=== PATIENT | female | born 1960 | race Caucasian/White ===

== ENCOUNTER 2023-03-08 10:13 | Outpatient (RCR) | payer OTHER, SELFPAY | END 2023-03-08 23:59 | disposition home or self-care (01) | LOC: RPT 10:13 | PROVIDERS: ATTENDING PHYSICIAN Orthopaedic Surgery; FAMILY PHYSICIAN Internal Medicine | DX: M54.51 Vertebrogenic low back pain (principal) | CPT/HCPCS: 97110; 97140 ==

== ENCOUNTER → 2023-05-04 10:01 | Outpatient (REF) | payer OTHER, SELFPAY ==
[2023-05-04 12:16] LABS: % Eosinophils 2.5 % (0-6); % Immature Granulocytes 0.2 % (0-0.5); % Lymphocytes 28.9 % (20.5-51.1); % Monocytes 8.3 % (1.7-9.3); % Neutrophils 59.1 % (42.2-75.2); Absolute Basophils 0.1 10^3/uL (0-0.2); Absolute Eosinophils 0.2 10^3/uL (0-0.7); Absolute Lymphocytes 1.8 10^3/uL (1.2-3.4); Absolute Monocytes 0.5 10^3/uL (0.1-0.6); Absolute Neutrophils 3.6 10^3/uL (1.4-6.5); Hematocrit 43.7 % (37.0-47.0); Hemoglobin 14.9 g/dL (12.0-16.0); Mean Corp Hgb Conc. 34.1 g/dL (33.0-37.0); Mean Corpuscular Hgb 32.3 pg (27.0-31.0); Mean Corpuscular Volume 94.6 fL (81.0-99.0); Mean Platelet Volume 9.2 fL (7.4-10.4); Nucleated Red Blood Cells % 0 %; Platelet Count 253 10^3/uL (130-400); Red Blood Cell Count 4.62 10^6/uL (4.20-5.40); Red Cell Dist. Width 12.4 % (11.5-14.5); White Blood Cell Count 6.1 10^3/uL (4.8-10.8)
[2023-05-04 12:42] LABS: ALT (SGPT) 33 U/L (0-35); AST (SGOT) 32 U/L (14-36); Albumin 4.4 g/dl (3.5-5.0); Alkaline Phosphatase 84 U/L (38-126); Blood Urea Nitrogen 19 mg/dl (7-17); Calcium 9.2 mg/dl (8.4-10.2); Carbon Dioxide 31 mmol/L (22-30); Chloride 104 mmol/L (98-107); Glucose 97 mg/dl (70-99); HDL Cholesterol 49 mg/dl; LDL Cholesterol, Calculated 174 mg/dl; Potassium 4.4 mmol/L (3.5-5.1); Sodium 140 mmol/L (135-145); Total Bilirubin 0.9 mg/dl (0.2-1.3); Total Cholesterol 254 mg/dl (50-199); Total Protein 7.6 g/dl (6.3-8.2); Triglyceride 157 mg/dl (10-149); Very Low Density Lipoprotein 31 mg/dl (0-30); eGFR > 60.00
[2023-05-04 13:28] LABS: TSH Reflex To Free T4 1.85 uIU/ml (0.47-4.68)
== END ==
LOC: HWLAB 10:01
PROVIDERS: ATTENDING PHYSICIAN Internal Medicine
DX: Z00.00 Encounter for general adult medical examination without abnormal findings (principal)
CPT/HCPCS: 36415; 80053; 80061; 84443; 85025

== ENCOUNTER → 2023-08-09 07:51 | Outpatient (REF) | payer MEDICARE, SELFPAY ==
[2023-08-09 11:57] LABS: HDL Cholesterol 63 mg/dl; LDL Cholesterol, Calculated 67 mg/dl; Total Cholesterol 156 mg/dl (50-199); Triglyceride 133 mg/dl (10-149); Very Low Density Lipoprotein 26 mg/dl (0-30)
[2023-08-10 15:46] LABS: ALT (SGPT) 37 U/L (0-35); AST (SGOT) 37 U/L (14-36); Albumin 4.2 g/dl (3.5-5.0); Alkaline Phosphatase 95 U/L (38-126); Blood Urea Nitrogen 24 mg/dl (7-17); Carbon Dioxide 27 mmol/L (22-30); Chloride 103 mmol/L (98-107); Glucose 108 mg/dl (70-99); Potassium 4.3 mmol/L (3.5-5.1); Sodium 140 mmol/L (135-145); Total Bilirubin 0.7 mg/dl (0.2-1.3); eGFR > 60.00
== END ==
LOC: HWLAB 07:51
PROVIDERS: ATTENDING PHYSICIAN Internal Medicine
DX: I10 Essential (primary) hypertension (principal)
CPT/HCPCS: 36415; 80053; 80061

== ENCOUNTER → 2023-12-15 08:35 | Outpatient (REF) | payer MEDICARE, SELFPAY ==
[2023-12-15 09:49] LABS: ALT (SGPT) 33 U/L (0-35); AST (SGOT) 36 U/L (14-36); Albumin 4.5 g/dl (3.5-5.0); Alkaline Phosphatase 86 U/L (38-126); Blood Urea Nitrogen 25 mg/dl (7-17); Calcium 9.8 mg/dl (8.4-10.2); Carbon Dioxide 28 mmol/L (22-30); Chloride 102 mmol/L (98-107); Glucose 96 mg/dl (70-99); HDL Cholesterol 63 mg/dl; LDL Cholesterol, Calculated 129 mg/dl; Potassium 4.5 mmol/L (3.5-5.1); Sodium 142 mmol/L (135-145); Total Bilirubin 0.9 mg/dl (0.2-1.3); Total Cholesterol 212 mg/dl (50-199); Total Protein 7.2 g/dl (6.3-8.2); Triglyceride 102 mg/dl (10-149); Very Low Density Lipoprotein 20 mg/dl (0-30); eGFR > 60.00
== END ==
LOC: HWLAB 08:35
PROVIDERS: ATTENDING PHYSICIAN Internal Medicine
DX: I10 Essential (primary) hypertension (principal); E78.00 Pure hypercholesterolemia, unspecified; R73.9 Hyperglycemia, unspecified
CPT/HCPCS: 36415; 80053; 80061

== ENCOUNTER → 2024-01-02 14:08 | Outpatient (REF) | payer MEDICARE, SELFPAY | LOC: HWWDC 14:08 | PROVIDERS: ATTENDING PHYSICIAN Nurse Practitioner Adult Health; FAMILY PHYSICIAN Internal Medicine | DX: Z12.31 Encounter for screening mammogram for malignant neoplasm of breast (principal) | CPT/HCPCS: 77063; 77067 ==

== ENCOUNTER → 2024-01-03 10:10 | Outpatient (REF) | payer MEDICARE, SELFPAY | LOC: HWRAD 10:10 | PROVIDERS: ATTENDING PHYSICIAN Internal Medicine Cardiovascular Disease; FAMILY PHYSICIAN Internal Medicine | DX: E78.00 Pure hypercholesterolemia, unspecified (principal); Z82.49 Family history of ischemic heart disease and other diseases of the circulatory system | CPT/HCPCS: 75571 ==

== ENCOUNTER → 2024-01-18 13:59 | Outpatient (REF) | payer MEDICARE, SELFPAY | LOC: HWRCS 13:59 | PROVIDERS: ATTENDING PHYSICIAN Internal Medicine Cardiovascular Disease; FAMILY PHYSICIAN Internal Medicine | DX: I31.39 Other pericardial effusion (noninflammatory) (principal) | CPT/HCPCS: 93306 ==

== ENCOUNTER → 2024-02-23 06:28 | Day surgery (SDC) | payer MEDICARE, SELFPAY | LOC: GI 06:28 | PROVIDERS: ATTENDING PHYSICIAN Internal Medicine Gastroenterology | DX: D12.2 Benign neoplasm of ascending colon (principal); D12.8 Benign neoplasm of rectum; Z80.0 Family history of malignant neoplasm of digestive organs | CPT/HCPCS: 45385; 88305 ==

== ENCOUNTER → 2024-05-13 08:12 | Outpatient (REF) | payer MEDICARE, SELFPAY ==
[2024-05-13 09:31] LABS: % Basophils 0.9 % (0-2); % Eosinophils 2.1 % (0-6); % Immature Granulocytes 0.2 % (0-0.5); % Lymphocytes 45.5 % (20.5-51.1); % Monocytes 9.4 % (1.7-9.3); % Neutrophils 41.9 % (42.2-75.2); Absolute Eosinophils 0.1 10^3/uL (0-0.7); Absolute Monocytes 0.4 10^3/uL (0.1-0.6); Absolute Neutrophils 1.8 10^3/uL (1.4-6.5); Hematocrit 42.4 % (37.0-47.0); Hemoglobin 14.3 g/dL (12.0-16.0); Mean Corp Hgb Conc. 33.7 g/dL (33.0-37.0); Mean Corpuscular Volume 94.9 fL (81.0-99.0); Mean Platelet Volume 9.3 fL (7.4-10.4); Nucleated Red Blood Cells % 0 %; Platelet Count 209 10^3/uL (130-400); Red Blood Cell Count 4.47 10^6/uL (4.20-5.40); White Blood Cell Count 4.4 10^3/uL (4.8-10.8)
[2024-05-13 10:25] LABS: ALT (SGPT) 37 U/L (0-35); AST (SGOT) 34 U/L (14-36); Albumin 4.6 g/dl (3.5-5.0); Alkaline Phosphatase 81 U/L (38-126); Blood Urea Nitrogen 25 mg/dl (7-17); Calcium 9.6 mg/dl (8.4-10.2); Carbon Dioxide 28 mmol/L (22-30); Chloride 102 mmol/L (98-107); Glucose 98 mg/dl (70-99); HDL Cholesterol 57 mg/dl; LDL Cholesterol, Calculated 131 mg/dl; Potassium 4.7 mmol/L (3.5-5.1); Sodium 139 mmol/L (135-145); Total Cholesterol 216 mg/dl (50-199); Total Protein 7.2 g/dl (6.3-8.2); Triglyceride 141 mg/dl (10-149); Very Low Density Lipoprotein 28 mg/dl (0-30); eGFR > 60.00
[2024-05-13 10:34] LABS: TSH Reflex To Free T4 2.62 uIU/ml (0.47-4.68)
== END ==
LOC: HWLAB 08:12
PROVIDERS: ATTENDING PHYSICIAN Internal Medicine
DX: I10 Essential (primary) hypertension (principal); R73.9 Hyperglycemia, unspecified
CPT/HCPCS: 36415; 80053; 80061; 84443; 85025

== ENCOUNTER → 2024-06-05 14:06 | Outpatient (REF) | payer MEDICARE, SELFPAY | LOC: HWRAD 14:06 | PROVIDERS: ATTENDING PHYSICIAN Internal Medicine; REFERRING PHYSICIAN Nurse Practitioner Adult Health | DX: Z78.0 Asymptomatic menopausal state (principal) | CPT/HCPCS: 77080 ==

== ENCOUNTER → 2025-01-09 13:58 | Outpatient (REF) | payer MEDICARE, SELFPAY | LOC: HWWDC 13:58 | PROVIDERS: ATTENDING PHYSICIAN Nurse Practitioner Adult Health; FAMILY PHYSICIAN Internal Medicine | DX: Z12.31 Encounter for screening mammogram for malignant neoplasm of breast (principal) | CPT/HCPCS: 77063; 77067 ==

== ENCOUNTER 2025-02-03 20:20 | Day surgery (SDC) | payer MEDICARE, SELFPAY ==
[2025-02-03] VITALS (17 sets, daily range): BP systolic 92–173; BP diastolic 36–85; BMI 19.4
[2025-02-03] MEDS: ZOFRAN 4 MG IV (15:00)
[2025-02-03] MEDS: NSS 1000 IV ×3 (15:00→22:02)
[2025-02-03] MEDS: MORPHINE SULFATE 4 MG IV ×2 (15:01→19:24)
[2025-02-03 15:07] LABS: Urine Character Clear (Clear)
[2025-02-03 15:15] LABS: Hematocrit 43.8 % (37.0-47.0); Hemoglobin 14.7 g/dL (12.0-16.0); Mean Corp Hgb Conc. 33.6 g/dL (33.0-37.0); Mean Corpuscular Volume 94.8 fL (81.0-99.0); Nucleated Red Blood Cells % 0 %; Platelet Count 208 10^3/uL (130-400); Red Cell Dist. Width 11.7 % (11.5-14.5)
[2025-02-03 15:27] LABS: ALT (SGPT) 23 U/L (0-35); AST (SGOT) 28 U/L (14-36); Albumin 4.6 g/dl (3.5-5.0); Alkaline Phosphatase 83 U/L (38-126); Blood Urea Nitrogen 18 mg/dl (7-17); Calcium 9.2 mg/dl (8.4-10.2); Carbon Dioxide 31 mmol/L (22-30); Chloride 96 mmol/L (98-107); Glucose 176 mg/dl (70-99); Lipase 85 U/L (23-300); Potassium 4.2 mmol/L (3.5-5.1); Sodium 134 mmol/L (135-145); Total Protein 7.8 g/dl (6.3-8.2); eGFR > 60.00
--- NOTE | 2025-02-03 15:32 | ED.GENMED ---
History of Present Illness
General
Chief Complaint: Back Pain
Source: patient
Exam Limitations: none
Time Seen by Provider: 02/03/25 14:37
Nursing documentation reviewed up to this point in time: agreed with
History of Present Illness
History of Present Illness:
64 yo female w h/o HTN, presents for pain across back just below the bra line that wraps around same level across upper abdomen/lower chest that woke her at 4 a.m. Tried Advil, Gas Ex, Pepto Bismol with no relief. Denies fever/chills, denies
vomiting but feels nauseous. Went to , had bacteria in urine and given rx for Augmentin. Pain was so bad she decided to comer here. Pain now 6/10, constant, 'like a tight band around my back and stomach.'
Past History
Past History
ED Past Medical History: HTN and Psychiatric (Anxiety)
Social History
Tobacco: Non-smoker
Alcohol: None
Drug: None
Review of Systems
Review of Systems
Allergies reviewed?: Yes
All Other Systems: ROS reviewed and negative except as documented in HPI and ROS
Phy Exam
Physical Exam
Physical Exam:
GENERAL: No acute distress. A&Ox3.
CONSTITUTIONAL: Afebrile.
EYES: clear, conjunctivae normal
ENMT: moist mucus membranes, Pharynx nl
RESPIRATORY: Regular respirations, nonlabored, lungs clear.
CARDIOVASCULAR: Regular rate and rhythm, no murmurs, no rubs.
GI: Soft, nontender, normal BS
MUSCULOSKELETAL: Moves with ease. Well perfused.
SKIN: Warm, dry, pink
PSYCH: Anxious mood and affect. Well kept, interactive and appropriate
NEUROLOGIC: Awake, alert and oriented. No focal neurological deficits
Course
Orders/Labs/Results
Orders:
Orders
02/03/25 14:37
US Abdomen Complete/Upper Urgent
Comment:
Reason For Exam: abd and back pain wraps around
02/03/25 14:38
0.9% Sodium Chloride 1000 ml [Nss] 1,000 ml IV BOLUS
Morphine Sulfate 4 mg IV NOW STA
Ondansetron Injectable [Zofran] 4 mg IV NOW STA
02/03/25 14:54
Complete Blood Count/With Diff Urgent
Comprehensive Metabolic Panel Urgent
Lipase Urgent
Urinalysis Reflex To Culture Urgent
Date Specimen was Collected: 02/03/25
Time Specimen was Collected: 14:40
Urine Microscopic Reflex Cult Urgent
Urine Culture Urgent
JUAN LUIS Source: U
Specimen Description:
Date Specimen was Collected: 02/03/25
Time Specimen was Collected: 14:40
02/03/25 17:23
Piperacillin/Tazo 3.375 Gram [Zosyn] 3.375 gram in 50 ml IV NOW
Abnormal Lab Results
02/03/25
14:54
MCH 31.8 H pg
(27.0-31.0)
Absolute Neuts (auto) 7.5 H 10^3/uL
(1.4-6.5)
Absolute Lymphs (auto) 1.0 L 10^3/uL
(1.2-3.4)
Neutrophils % 82.6 H %
(42.2-75.2)
Lymphocytes % 10.7 L %
(20.5-51.1)
Sodium 134 L mmol/L
(135-145)
Chloride 96 L mmol/L
(98-107)
Carbon Dioxide 31 H mmol/L
(22-30)
BUN 18 H mg/dl
(7-17)
Glucose 176 H mg/dl
(70-99)
Ur Occult Blood Reflex 2+ A
(Negative)
Leukocyte Esterase Rfl 1+ A
(Negative)
Urine RBC 3-6 A /HPF
(0-2)
Urine Bacteria (Reflex) Few A
(Negative)
Urine Glucose 2+ A
(Negative)
Urine Albumin (Reflex) 1+ A
(Neg - Trace)
02/03/25 14:54
02/03/25 14:54
Vital Signs
Initial and Last Documented VS:
Initial Vital Signs
Temp Pulse BP Pulse Ox
98.0 F 70 173/85 99
02/03/25 13:42 02/03/25 13:42 02/03/25 13:42 02/03/25 13:42
Last Documented Vital Signs
Temp Pulse BP Pulse Ox
98.0 F 70 154/63 99
02/03/25 13:42 02/03/25 13:42 02/03/25 17:00 02/03/25 17:15
Solution Make Up Operator consulted with Physician
Solution Make Up Operator consulted with physician?: Yes
Name of Physician Consulted: Tonie
MDM/Problems Addressed
Differential Diagnosis Includes:
Gall stones, cholecystitis, choledocholithiasis, pancreatitis
MDM/Problems Addressed:
64 yo female w h/o HTN, presents for pain across back just below the bra line that wraps around same level across upper abdomen/lower chest that woke her at 4 a.m. Tried Advil, Gas Ex, Pepto Bismol with no relief. Denies fever/chills, denies
vomiting but feels nauseous. Went to , had bacteria in urine and given rx for Augmentin. Pain was so bad she decided to comer here. Pain now 6/10, constant, 'like a tight band around my back and stomach.'
CBC unremarkable
CMP with no clinically significant abnormality
urinalysis:
4:50 p.m.
In to re evaluate pt: feeling much better after IVFs and pain medication, pain is gone
US report reviewed: IMPRESSION:
Cholelithiasis. Gallbladder wall appears thickened and not mentioned above, has some increased color flow. In the correct clinical setting, these findings are suggestive of cholecystitis. Negative sonographic Fitzgerald's sign.
Intrahepatic bile duct dilation. Common bile duct is dilated measuring up to 9.7 mm. No sonographic evidence for bile duct calculus.
Simple cyst arising in the upper pole the right kidney.
Consulted Surgery Dr. Lee and Michell notified of admission. Requests admit to their service and Zosyn
Pt and updated.
Dr. Schilling notified of admission.
*Pulse Oximetry
SaO2: 98
Oxygen Mode of Delivery: Room air
Patient hypoxic: no
*Critical Care Note
Total Time (30-74mins, 75-104mins- exclusive of procedures): Not Applicable
ED Attending Note
-
Portions of this chart may have been created with voice recognition software.� Occasional wrong word or��sound alike� substitutions may have occurred due to the inherent limitations of voice recognition software.
Discharge Plan
Departure
Patient Disposition: Admit
Date of Disposition: 02/03/25
Time of Disposition: 17:23
Admit to: Med/Surg
Presentation/result/management discussed w/ accepting /: Michell
Condition: Good
Discharge Problem:
Acute cholecystitis
Prescriptions:
No Action
hydrochlorothiazide 12.5 MG tablet
12.5 mg PO DAILY Qty: 14 0RF
Referrals:
Pamela Espinoza MD [Family Provider, Internal Medicine]
Interventions
Interventions:
*Risk Screen - Suicide Last Done: 02/03/25 13:46
*General Assessment Last Done: 02/03/25 15:07
*Neglect/Abuse Screening Last Done: 02/03/25 13:46
*ED- Fall Risk Assessment Last Done: 02/03/25 15:07
*ED COVID-19 Vaccine History Last Done: 02/03/25 15:07
*ED Influenza Vaccine History Last Done: 02/03/25 15:07
ED-Musculoskeletal Assessment Last Done: 02/03/25 15:07
Discharge Date and Time
Print Language: [place]
[2025-02-03] MEDS: ZOSYN 50 IV ×2 (17:34→22:48)
--- NOTE | 2025-02-03 18:57 | ED.GENMED ---
History of Present Illness
General
Chief Complaint: Back Pain
Time Seen by Provider: 02/03/25 14:37
Past History
Past History
ED Past Medical History: HTN and Psychiatric (Anxiety)
Social History
Tobacco: Non-smoker
Alcohol: None
Drug: None
Course
Orders/Labs/Results
Orders:
Orders
02/03/25 14:37
US Abdomen Complete/Upper Urgent
Comment:
Reason For Exam: abd and back pain wraps around
02/03/25 14:38
0.9% Sodium Chloride 1000 ml [Nss] 1,000 ml IV BOLUS
Morphine Sulfate 4 mg IV NOW STA
Ondansetron Injectable [Zofran] 4 mg IV NOW STA
02/03/25 14:54
Complete Blood Count/With Diff Urgent
Comprehensive Metabolic Panel Urgent
Lipase Urgent
Urinalysis Reflex To Culture Urgent
Date Specimen was Collected: 02/03/25
Time Specimen was Collected: 14:40
Urine Microscopic Reflex Cult Urgent
Urine Culture Urgent
JUAN LUIS Source: U
Specimen Description:
Date Specimen was Collected: 02/03/25
Time Specimen was Collected: 14:40
02/03/25 17:23
Piperacillin/Tazo 3.375 Gram [Zosyn] 3.375 gram in 50 ml IV NOW
02/03/25 18:57
Morphine Sulfate 4 mg IV NOW STA
NSS 1000mL Bolus WIDE OPEN 0.9% Sodium Chloride 1000 ml [Nss] 1,000 ml IV BOLUS
Abnormal Lab Results
02/03/25
14:54
MCH 31.8 H pg
(27.0-31.0)
Absolute Neuts (auto) 7.5 H 10^3/uL
(1.4-6.5)
Absolute Lymphs (auto) 1.0 L 10^3/uL
(1.2-3.4)
Neutrophils % 82.6 H %
(42.2-75.2)
Lymphocytes % 10.7 L %
(20.5-51.1)
Sodium 134 L mmol/L
(135-145)
Chloride 96 L mmol/L
(98-107)
Carbon Dioxide 31 H mmol/L
(22-30)
BUN 18 H mg/dl
(7-17)
Glucose 176 H mg/dl
(70-99)
Ur Occult Blood Reflex 2+ A
(Negative)
Leukocyte Esterase Rfl 1+ A
(Negative)
Urine RBC 3-6 A /HPF
(0-2)
Urine Bacteria (Reflex) Few A
(Negative)
Urine Glucose 2+ A
(Negative)
Urine Albumin (Reflex) 1+ A
(Neg - Trace)
02/03/25 14:54
02/03/25 14:54
Vital Signs
Initial and Last Documented VS:
Initial Vital Signs
Temp Pulse BP Pulse Ox
98.0 F 70 173/85 99
02/03/25 13:42 02/03/25 13:42 02/03/25 13:42 02/03/25 13:42
Last Documented Vital Signs
Temp Pulse BP Pulse Ox
98.0 F 70 154/63 99
02/03/25 13:42 02/03/25 13:42 02/03/25 17:00 02/03/25 17:15
*Pulse Oximetry
SaO2: 99
Oxygen Mode of Delivery: Room air
ED Attending Note
ED Attending Note
Patient seen and examined by attending physician: Yes
I performed the substantive portion of visit, reviewed & personally made and approve the management plan that is documented in note by myself or ALEXSANDRA.: Yes
ED Attending Note:
Seen with nurse practitioner examined independently 63-year-old female epigastric right upper quadrant right back pain fairly severe earlier today labs noted, ultrasound noted looks like biliary colic
-
Portions of this chart may have been created with voice recognition software.� Occasional wrong word or��sound alike� substitutions may have occurred due to the inherent limitations of voice recognition software.
Discharge Plan
Departure
Patient Disposition: Admit
Date of Disposition: 02/03/25
Time of Disposition: 17:23
Admit to: Med/Surg
Presentation/result/management discussed w/ accepting MD/DO: Michell
Condition: Good
Discharge Problem:
Acute cholecystitis
Prescriptions:
No Action
simethicone [Gas-X] 80 mg Tablet,Chewable
80 mg PO DAILYPRN PRN (Reason: gas pains)
nebivolol 2.5 mg Tablet
2.5 mg PO HS
Xiidra 5 % Dropperette
1 drp BOTH EYES BID
Theragen Tablet
1 tab PO DAILY
zinc sulfate 50 mg zinc (220 mg) Tablet
50 mg PO QPM
calcium carbonate [Calcium 500] 500 mg calcium (1,250 mg) Tablet
500 mg PO DAILY
bismuth subsalicylate [Pepto-Bismol] 262 mg/15 mL Suspension
262 mg PO DAILYPRN PRN (Reason: gerd)
ibuprofen [Advil] 200 mg Tablet
400 mg PO DAILYPRN PRN (Reason: mild pain)
cholecalciferol (vitamin D3) [Vitamin D3] 25 mcg (1,000 unit) Tablet
25 mcg PO DAILY
magnesium oxide 200 mg magnesium Tablet
200 mg PO QPM
Referrals:
Pamela Espinoza MD [Family Provider, Internal Medicine]
Interventions
Interventions:
*Risk Screen - Suicide Last Done: 02/03/25 13:46
*General Assessment Last Done: 02/03/25 15:07
*Neglect/Abuse Screening Last Done: 02/03/25 13:46
*ED- Fall Risk Assessment Last Done: 02/03/25 15:07
*ED COVID-19 Vaccine History Last Done: 02/03/25 15:07
*ED Influenza Vaccine History Last Done: 02/03/25 15:07
ED-Musculoskeletal Assessment Last Done: 02/03/25 15:07
Discharge Date and Time
Print Language: TAJIK
--- NOTE | 2025-02-03 19:58 | HPS.HSE ---
Family Physician
-
Family Physician: Pamela Espinoza
Chief Complaint
-
Back Pain
History of Present Illness
a 64 years old female with PMH of hypertension, GERD present to ER with central back pain below the bra line started around 4am, 8-9/10 of pain scale. Patient took Gas Ex, Pepto Bismol and Advil with no relief. Around 8am pain extended to b/l lower
chest and epigastric area. Symptoms associated with nausea. Denies vomiting, diarrhea, constipation, sob, chills, fever or any other symptoms. Patient currently is following a healthy diet and lost around 10 lbs with the healthy food. No pain during
the exam as the patient just received a dose of morphine before assessment time.
Medical History
Past Medical History
Past Medical History: Reports GERD and HTN
Past Surgical History: Reports Appendectomy (at age of 64 years old) and Other (Laparotomy at age 30 yrs old and fibroid tumor removed. Facelift )
Social History
Tobacco: Non-smoker
Alcohol: Occasional
Drug: None
Personal:
Living: With Family
Employment: Employed
Family History
Family History: Other (grandmother with cholecystitis )
Allergies / Home Medications
Allergies reflects when Allergies were last updated in [facility] ([facility]
Home Medications with original date entered in [facility] ([facility])
Allergy/Medication List:
Patient Allergies
Allergy/AdvReac Type Severity Reaction Status Date / Time
No Known Allergies Allergy Unverified 03/20/18 16:31
Home Medications Table - record
�Medication �Instructions �Recorded �Confirmed
bismuth subsalicylate 262 mg/15 mL 262 mg PO DAILYPRN PRN gerd 02/03/25 02/03/25
oral suspension (Pepto-Bismol)
calcium carbonate 500 mg PO DAILY Supplement 02/03/25 02/03/25
cholecalciferol (vitamin D3) 25 25 mcg PO DAILY Supplement 02/03/25 02/03/25
mcg (1,000 unit) tablet (Vitamin
D3)
ibuprofen 200 mg tablet (Advil) 400 mg PO DAILYPRN PRN mild pain 02/03/25 02/03/25
lifitegrast 5 % eye drops in a 1 drp BOTH EYES BID Eye Condition 02/03/25 02/03/25
dropperette (Xiidra)
magnesium oxide 200 mg PO QPM Supplement 02/03/25 02/03/25
nebivolol 2.5 mg tablet 2.5 mg PO HS Heart 02/03/25 02/03/25
Disease/Condition
simethicone 80 mg chewable tablet 80 mg PO DAILYPRN PRN gas pains 02/03/25 02/03/25
therapeutic multivitamin 1 tab PO DAILY Supplement 02/03/25 02/03/25
zinc sulfate 50 mg zinc (220 mg) 50 mg PO QPM Supplement 02/03/25 02/03/25
tablet
Review of Systems
-
History Source: Patient
A 12 point ROS was completed and negative except as noted: Yes
Constitutional: Reports No Symptoms
EENT: Reports No Symptoms
Respiratory: Reports No Symptoms
Cardiac: Reports No Symptoms
Abdomen/GI: Reports Abdominal Pain and Nausea
: Reports No Symptoms
Physical Exam
Vital Signs
Vital Signs
Temp Pulse BP Pulse Ox
98.0 F 70 154/63 99
02/03/25 13:42 02/03/25 13:42 02/03/25 17:00 02/03/25 18:58
Physical Exam
General: No Apparent Distress
Respiratory: Clear
Cardiac: Regular Rhythm
GI: Soft, Non Tender, Non Distended and Normal Bowel Sounds
Musculoskeletal: No Edema
Neuro: Awake and AO x 3
Laboratory Results
-
02/03/25 14:54
02/03/25 14:54
Laboratory Results
Total Bilirubin 0.6 mg/dl (0.2-1.3) 02/03/25 14:54
AST 28 U/L (14-36) 02/03/25 14:54
ALT 23 U/L (0-35) 02/03/25 14:54
Alkaline Phosphatase 83 U/L (38-126) 02/03/25 14:54
Lipase 85 U/L (23-300) 02/03/25 14:54
Impression/Plan
-
Abdominal U/S shows
Cholelithiasis. Gallbladder wall appears thickened and not mentioned above, has some increased color flow. In the correct clinical setting, these findings are suggestive of cholecystitis. Negative sonographic Fitzgerald's sign.
Intrahepatic bile duct dilation. Common bile duct is dilated measuring up to 9.7 mm. No sonographic evidence for bile duct calculus.
Simple cyst arising in the upper pole the right kidney.
IMPRESSION:
Acute cholecystitis
PLAN:
Admit/ observation / med-surg / Dr. Galarza/ surgical services.
NPO
IVF
Abx Zosyn
antiemetics as needed.
analgesics as needed.
Hypertension
Currently on Nebivolol
DVT prophylaxis: Lovenox
Code status: Full code
[2025-02-04] VITALS (8 sets, daily range): BP systolic 102–129; BP diastolic 41–66
[2025-02-04] MEDS: MELATONIN 5 MG PO (01:24)
--- NOTE | 2025-02-04 04:55 | PTCARENOTE ---
Patient received from ED via stretcher. Patient able to ambulate independently to bed. Patient denies any pain or discomfort. Patient able to tolerate small sips of clear liquids. Reviewed POC with patient and spouse. Call tobias with in reach. Will
monitor.
[2025-02-04] MEDS: ZOSYN 50 IV ×4 (05:16→23:46)
[2025-02-04 05:42] LABS: Hematocrit 38.3 % (37.0-47.0); Hemoglobin 12.5 g/dL (12.0-16.0); Mean Corp Hgb Conc. 32.6 g/dL (33.0-37.0); Mean Corpuscular Volume 97.0 fL (81.0-99.0); Platelet Count 156 10^3/uL (130-400); Red Cell Dist. Width 11.9 % (11.5-14.5)
[2025-02-04 05:59] LABS: Blood Urea Nitrogen 12 mg/dl (7-17); Calcium 8.4 mg/dl (8.4-10.2); Carbon Dioxide 31 mmol/L (22-30); Chloride 106 mmol/L (98-107); Estimated Creatinine Clearance 48 ml/min; Glucose 107 mg/dl (70-99); Potassium 4.2 mmol/L (3.5-5.1); Sodium 138 mmol/L (135-145); eGFR > 60.00
[2025-02-04] MEDS: MORPHINE SULFATE 2 MG IV (08:06)
[2025-02-04] MEDS: TYLENOL 650 MG PO (08:17)
--- NOTE | 2025-02-04 08:40 | CON.GS ---
Medical History
-
Chief Complaint: Abdominal pain
History of Present Illness:
Patient is a 64 yo F with a PMH of GERD, HTN, s/p appendectomy, and s/p laparoscopic removal of a fibroid. Ms. Hartley presents with 24 hours of upper abdominal pain. She states that her symptoms began acutely yesterday morning. Due to the
persistence and severity of her symptoms she presented to the ER. Pain radiates to her central upper back as well as around her entire abdomen. She has had prior attacks over the years and more frequently on a weekly basis over the past few
months. No nausea or vomiting. No fevers or chills. She denies any jaundice, pale stools, or tea colored urine. Family history notable for a grandmother postcholecystectomy
Past Medical History
Past Medical History: GERD and HTN
Past Surgical History: Appendectomy and Gynecological (Laparoscopic removal of a fibroid)
Social History
Tobacco: Non-Smoker
Alcohol: Occasional
Drug: None
Personal:
Living: With Family
Family History
Family History: Other (Grandmother post-cholecystectomy)
Allergies / Home Medications
Allergy/AdvReac Type Severity Reaction Status Date / Time
No Known Allergies Allergy Unverified 03/20/18 16:31
�Medication �Instructions �Recorded �Confirmed �Type
bismuth subsalicylate 262 mg/15 mL 262 mg PO DAILYPRN PRN gerd 02/03/25 02/03/25 History
oral suspension (Pepto-Bismol)
calcium carbonate 500 mg PO DAILY Supplement 02/03/25 02/03/25 History
cholecalciferol (vitamin D3) 25 25 mcg PO DAILY Supplement 02/03/25 02/03/25 History
mcg (1,000 unit) tablet (Vitamin
D3)
ibuprofen 200 mg tablet (Advil) 400 mg PO DAILYPRN PRN mild pain 02/03/25 02/03/25 History
lifitegrast 5 % eye drops in a 1 drp BOTH EYES BID Eye Condition 02/03/25 02/03/25 History
dropperette (Xiidra)
magnesium oxide 200 mg PO QPM Supplement 02/03/25 02/03/25 History
nebivolol 2.5 mg tablet 2.5 mg PO HS Heart 02/03/25 02/03/25 History
Disease/Condition
simethicone 80 mg chewable tablet 80 mg PO DAILYPRN PRN gas pains 02/03/25 02/03/25 History
therapeutic multivitamin 1 tab PO DAILY Supplement 02/03/25 02/03/25 History
zinc sulfate 50 mg zinc (220 mg) 50 mg PO QPM Supplement 02/03/25 02/03/25 History
tablet
Review of Systems
-
A 10 point review of systems was completed, and was negative except as per HPI.
Physical Exam
Vital Signs
Temp Pulse Resp BP Pulse Ox
100.6 F H 64 16 105/45 98
02/04/25 07:37 02/04/25 07:37 02/04/25 07:37 02/04/25 07:37 02/04/25 07:37
02/03/25 02/04/25 02/05/25
06:59 06:59 06:59
Actual Weight 49.668 kg
Body Mass Index (BMI) 19.4
Lab Results
02/04/25 05:07
02/04/25 05:07
WBC 6.1 10^3/uL (4.8-10.8) 02/04/25 05:07
Hgb 12.5 g/dL (12.0-16.0) 02/04/25 05:07
Hct 38.3 % (37.0-47.0) 02/04/25 05:07
Plt Count 156 10^3/uL (130-400) D 02/04/25 05:07
Abs Immat Gran (auto) 0.0 10^3/uL (0-0.05) 02/03/25 14:54
Neutrophils % 82.6 % (42.2-75.2) H 02/03/25 14:54
Physical Exam
General: Well Developed, Well Nourished and No Apparent Distress
HEENT: Normocephalic and Anicteric
Respiratory: Non Labored Respirations
Cardiac: Regular Rhythm
GI: Soft, Non Distended, Tender (Epigastrium/RUQ, positive Fitzgerald sign), Incisions (Well-healed) and Obese (Nonperitoneal (no rebound or guarding))
Musculoskeletal: No Edema
Skin: Warm and Dry
Neuro: Nonfocal/Grossly Intact
Data Reviewed
-
Ultrasound: Image Personally Visualized and interpreted and Report Reviewed by me
Labs: Labs Reviewed by me
Assessment / Plan
-
Patient is a 64 yo F p/w acute on chronic cholecystitis
The natural history and pathophysiology of biliary and stone disease was discussed. Anatomy was reviewed. Workup thus far including labs and ultrasound were reviewed. Options for management were reviewed. Given her persistent pain and frequency
of attacks recommend cholecystectomy.
Plan for a laparoscopic cholecystectomy with intraoperative cholangiogram. The procedure itself, as well as the risks, benefits, and alternatives was discussed. Specifically, we discussed the risks of bleeding, infection, injury to surrounding
structures (bowel, bile ducts), CBD injury, need for open procedure. Typical postprocedural recovery was discussed. Specifically, we discussed activity restrictions and the 10 to 20% risks of fluctuations in GI function. All questions answered.
Consent signed.
-- Laparoscopic cholecystectomy with IOC
-- NPO, IVF
-- Antibiotics: Zosyn
-- Pain control: Tylenol and IV Morphine
--- NOTE | 2025-02-04 08:48 | W.SUR.PREOP ---
Pre-Operative Surgical Note
-
I have examined this patient prior to the performance of the scheduled procedure.
The patient's condition is unchanged from the time of the current History and
Physical and the patient is able to undergo the scheduled procedure.
[2025-02-04] MEDS: NSS 1000 IV (09:35)
[2025-02-04] MEDS: DILAUDID 0.5 MG IV ×2 (10:31→13:32)
[2025-02-04 11:04] LABS: ALT (SGPT) 34 U/L (0-35); AST (SGOT) 32 U/L (14-36); Albumin 3.3 g/dl (3.5-5.0); Alkaline Phosphatase 70 U/L (38-126); Total Protein 5.8 g/dl (6.3-8.2)
[2025-02-04] MEDS: ZOFRAN 4 MG IV (13:31)
--- NOTE | 2025-02-04 16:37 | W.IMMPOSTOP ---
Surgical Immed Post Op Note
-
Primary Surgeon: Michell
Assisting Surgeon: None
Pre-op Diagnosis: Acute on chronic cholecystitis
Post-op Diagnosis: Acute on chronic cholecystitis
Procedure Performed: Laparoscopic cholecystectomy with IOC
Anesthesia Type: General
Specimen / Cultures:
1. Gallbladder
Estimated Blood Loss: 3 cc
Complications: None
Operative Findings:
1. Distended, significant chronic wall thickening, hydropic bile, large stones
2. Critical view
3. IOC negative
4. Duct and artery taken with clips
--- NOTE | 2025-02-04 16:53 | CM ---
CM unable to complete IA; pt off the floor for cholecystectomy.
CM to f/u in AM.
[2025-02-04] MEDS: LOVENOX 30 MG SC (18:16)
--- NOTE | 2025-02-05 03:02 | DOWNTIME ---
There was a [employer] Client Manager Of Change Downtime on 02/05/2025 from 0100 to 02/05/2025 at 0255. Downtime documentation of patient's care, including medication administrations, has been reconciled in the electronic record per guidelines. Refer to the
patient's paper chart under the miscellaneous tab to see printed paper medication records and downtime forms.
[2025-02-05] MEDS: NSS 1000 IV (04:00)
[2025-02-05] MEDS: TORADOL 10 MG IV ×2 (04:00→10:03)
[2025-02-05 05:41] LABS: Hematocrit 34.2 % (37.0-47.0); Hemoglobin 11.6 g/dL (12.0-16.0); Mean Corp Hgb Conc. 33.9 g/dL (33.0-37.0); Mean Corpuscular Volume 93.4 fL (81.0-99.0); Platelet Count 156 10^3/uL (130-400); Red Cell Dist. Width 11.7 % (11.5-14.5)
[2025-02-05] MEDS: ZOSYN 50 IV (05:45)
[2025-02-05 06:06] LABS: ALT (SGPT) 57 U/L (0-35); AST (SGOT) 59 U/L (14-36); Albumin 3.2 g/dl (3.5-5.0); Alkaline Phosphatase 62 U/L (38-126); Blood Urea Nitrogen 12 mg/dl (7-17); Calcium 8.2 mg/dl (8.4-10.2); Carbon Dioxide 30 mmol/L (22-30); Chloride 105 mmol/L (98-107); Estimated Creatinine Clearance 48 ml/min; Glucose 114 mg/dl (70-99); Potassium 4.3 mmol/L (3.5-5.1); Sodium 139 mmol/L (135-145); Total Protein 5.8 g/dl (6.3-8.2); eGFR > 60.00
[2025-02-05 08:13] VITALS: BP 125/52
--- NOTE | 2025-02-05 09:15 | W.PN.GS2 ---
Today's Communication / Plan
-
-- DC today
Assessment / Plan
-
Patient is a 64 yo M /w acute on chronic cholecystitis
POD#1 s/p laparoscopic cholecystectomy with IOC
AVSS
Labs notable for normal WBC, stable Hb, normal lytes and renal function, normal bili, mild transaminitis (expected, mechanical liver manipulation operatively)
Recovering well, no post-op concerns.
-- Regular diet
-- Pain control: Tylenol, Toradol, Oxycodone
-- HLIV
-- Abx: None further needed
-- Home meds
-- DVT: Lovenox
-- DC today
Subjective Data
-
Date of Service: February 05, 2025
No complaints. Pain well controlled. No nausea or vomiting. No fevers.
Objective Data
-
Intake and Output
02/04/25 02/05/25 02/06/25
06:59 06:59 06:59
Intake Total 920 / 920
Balance 920 / 920
Intake:
Oral fluids 720 / 720
IV fluids (Total) 200 / 200
Normosal 200 / 200
Other:
Number of approximated MODERATE 1 2
amounts of urine
Vital Signs
Temp Pulse Resp BP Pulse Ox
97.7 F 59 16 125/52 98
02/05/25 08:13 02/05/25 08:13 02/05/25 08:13 02/05/25 08:13 02/05/25 08:13
Lab Results
02/05/25 05:06
02/05/25 05:06
Calcium 8.2 mg/dl (8.4-10.2) L 02/05/25 05:06
Total Bilirubin 0.7 mg/dl (0.2-1.3) 02/05/25 05:06
Direct Bilirubin Cancelled 02/04/25 08:08
AST 59 U/L (14-36) H 02/05/25 05:06
ALT 57 U/L (0-35) H 02/05/25 05:06
Alkaline Phosphatase 62 U/L (38-126) 02/05/25 05:06
Total Protein 5.8 g/dl (6.3-8.2) L 02/05/25 05:06
Albumin 3.2 g/dl (3.5-5.0) L 02/05/25 05:06
Physical Exam
-
Gen: NAD
Abd: soft, mild tenderness at incisions. ND, non-peritoneal, incisions c/d/i - no erythema, ecchymosis or drainage
Patient has a waters catheter: No
Patient has a central line: No
--- NOTE | 2025-02-05 09:35 | CM ---
CM met with Jody and her at bedside this AM. Rivera notice given, signed copy placed in the patient's chart.
Pt is (I) amb and adls at baseline; s/p cholecystectomy and ambulatory in her room.
Pt's will provide transport home today. No needs identified.
Plan: Discharge to home today via car
--- NOTE | 2025-02-08 07:05 | ED.GENMED ---
History of Present Illness
General
Chief Complaint: Back Pain
Time Seen by Provider: 02/03/25 14:37
Past History
Past History
ED Past Medical History: HTN and Psychiatric (Anxiety)
Social History
Tobacco: Non-smoker
Alcohol: None
Drug: None
Course
Orders/Labs/Results
Orders:
Orders
02/03/25 14:37
US Abdomen Complete/Upper Urgent
Comment:
Reason For Exam: abd and back pain wraps around
02/03/25 14:38
0.9% Sodium Chloride 1000 ml [Nss] 1,000 ml IV BOLUS
Morphine Sulfate 4 mg IV NOW STA
Ondansetron Injectable [Zofran] 4 mg IV NOW STA
02/03/25 14:54
Complete Blood Count/With Diff Urgent
Comprehensive Metabolic Panel Urgent
Lipase Urgent
Urinalysis Reflex To Culture Urgent
Date Specimen was Collected: 02/03/25
Time Specimen was Collected: 14:40
Urine Microscopic Reflex Cult Urgent
Urine Culture Urgent
JUAN LUIS Source: U
Specimen Description:
Date Specimen was Collected: 02/03/25
Time Specimen was Collected: 14:40
02/03/25 17:23
Piperacillin/Tazo 3.375 Gram [Zosyn] 3.375 gram in 50 ml IV NOW
02/03/25 18:57
0.9% Sodium Chloride 1000 ml [Nss] 1,000 ml IV BOLUS
Morphine Sulfate 4 mg IV NOW STA
02/03/25 19:59
Admit/Transfer Patient As Directed
Co-Sign Provider:
Level of Care: Observation services
Assign to:: Medical/Surgical
Physician / Group: Dr. Cavazos /surgical
Diagnosis: Acute cholecystitis
PRN Pain Medication Management As Directed
May give lesser potent ordered pain med per pt: Yes
preference::
Protocol:: Medication orders for pain may be administered in a
manner that supports deferring to patient preference
when the pt is:
- Requesting an ordered lesser potent pain medication.
Least to most potent pain medications are defined
as: acetaminophen < NSAID < tramadol < opioids
(morphine, oxycodone, hydromorphone).
- Requesting a lesser dose of the same medication IF
ORDERED.
- Requesting a less intrusive route of administration
if both routes are prescribed by the provider (PO <
IV).
02/03/25 20:00
Code Status As Directed
Resuscitation Status: Full Code
02/03/25 21:04
0.9% Sodium Chloride 1000 ml [Nss] 1,000 ml IV 80 mls/hr
Acetaminophen [Tylenol] 650 mg PO Q4HPRN PRN
Bisacodyl [Dulcolax] 10 mg RECTAL [id number] PRN
Docusate W/Senna [Senokot-S] 1 tablet PO BIDPRN PRN
Morphine Sulfate 2 mg IV Q4HPRN PRN
Polyethylene Glycol Powder [Miralax] 17 grams PO DAILYPRN PRN
02/03/25 21:04
Activity As Directed
Activity Level: Out of Bed-Early Mobility
Pneumatic Compression Sleeves As Directed
Type: Knee high
Vital Signs As Directed
Frequency: Per unit guidelines
DX Deep Vein Thrombosis Video Routine
02/03/25 21:29
Ondansetron Injectable [Zofran] 4 mg IV Q6HPRN PRN
02/03/25 22:00
Flush (0.9% Sodium Chloride) [Flush (Nss)] See Dose Instructions IV PER PROTOCOL
02/04/25 00:00
Piperacillin/Tazo 3.375 Gram [Zosyn] 3.375 gram in 50 ml IV Q6H
02/04/25 01:18
Melatonin 5 mg PO NOW STA
02/04/25 05:07
Basic Metabolic Panel IN AM
Complete Blood Count/No Diff IN AM
Bflmh-Ontu-Ckqetxd Routine
02/04/25 Breakfast
NPO
Allow oral meds: Yes
Allow clear liquids: No
02/04/25 10:24
HYDROmorphone [Dilaudid] 0.5 mg IV Q3HPRN PRN
02/04/25 14:33
Fentanyl Citrate/Pf [Sublimaze] 100 mcg .ROUTE .STK-MED ONE
02/04/25 14:39
Bupivacaine 0.25%Pf/Epinephrin [Sensorcaine-Epi 0.25%-0.0005] 30 ml .ROUTE .STK-MED ONE
Iohexol [Omnipaque] 50 ml .ROUTE .STK-MED ONE
02/04/25 Dinner
Low Fat
At Your Request: Full Participation
Does patient need a safe tray?: No
02/04/25 15:06
Lidocaine HCl/Pf [Xylocaine-Mpf 1% Vial] 50 mg .ROUTE .STK-MED ONE
Phenylephrine HCl/0.9% NaCl [John-Synephrine] 1,000 mcg .ROUTE .STK-MED ONE
Propofol [Diprivan] 20 ml .ROUTE .STK-MED
Rocuronium Zarephath [Rocuronium] 100 mg .ROUTE .STK-MED ONE
02/04/25 15:15
Dexamethasone Sod Phosphate [Decadron] 20 mg .ROUTE .STK-MED ONE
HYDROmorphone [Dilaudid] 1 mg .ROUTE .STK-MED ONE
Metoclopramide [Reglan] 10 mg .ROUTE .STK-MED ONE
Ondansetron Injectable [Zofran] 4 mg .ROUTE .STK-MED ONE
02/04/25 15:21
Sugammadex Sodium [Bridion] 200 mg .ROUTE .STK-MED ONE
02/04/25 15:28
OR Pathology Routine
Pre-Operative Diagnosis: ACUTE CHOLECYSTITIS
Operative Procedure: LAPAROSCOPIC CHOLECYSTECTOMY, CHOLANGIOGRAM
Surgeon: NICOLÁS CAVAZOS
Circulating Nurse: BOWEN QUINTANILLA
Specimen Type: GALLBLADDER
02/04/25 15:40
RF Fluoroscopy, C-arm Routine
Reason For Exam: GALLSTONES
RF Operative Cholangiogram Routine
Reason For Exam: GALLSTONES
02/04/25 15:51
ePHEDrine SULFATE [Emerphed] 50 mg .ROUTE .STK-MED ONE
02/04/25 16:13
Ketorolac [Toradol] 30 mg .ROUTE .STK-MED ONE
02/04/25 16:41
Admit Patient As Directed
Co-Sign Provider:
Level of Care: Post Proc/Surg Recovery
Assign to:: Medical/Surgical
Physician / Group: Michell / MARTIN
Diagnosis: Cholecystitis
Reason for Overnight Stay: Standard of Care
Ketorolac [Toradol] 10 mg IV Q6HPRN PRN
Oxycodone [Roxicodone] 5 mg PO Q4HPRN PRN
Activity As Directed
Activity Level: Ambulate
Intake/ Output As Directed
Frequency: Per unit guidelines
PRN Pain Medication Management As Directed
May give lesser potent ordered pain med per pt: Yes
preference::
Protocol:: Medication orders for pain may be administered in a
manner that supports deferring to patient preference
when the pt is:
- Requesting an ordered lesser potent pain medication.
Least to most potent pain medications are defined
as: acetaminophen < NSAID < tramadol < opioids
(morphine, oxycodone, hydromorphone).
- Requesting a lesser dose of the same medication IF
ORDERED.
- Requesting a less intrusive route of administration
if both routes are prescribed by the provider (PO <
IV).
02/04/25 16:42
O2 Therapy [RESP] Routine
Titrate/Wean O2 to maintain O2 sat greater than (%): 90
Rx Incentive Spirometry [RESP] Routine
Frequency: q1h while awake
# of times per hour: 10
02/04/25 18:00
Enoxaparin Sodium [Lovenox] 30 mg SC QPM
02/05/25 05:06
Complete Blood Count/No Diff IN AM
Comprehensive Metabolic Panel IN AM
02/05/25 09:15
Discharge Patient As Directed
Is patient a candidate for the pneumococcal vaccine?: No
Year the MOST RECENT Conjugate Pneumococcal vaccine received: unknown
Is patient a candidate for the influenza vaccine?: No
Month/Year vaccine administered for 1304-6963 flu season: 6682-2264 Season/Unsure
Do you have a designated caregiver: Yes-same as spokesperson
Abnormal Lab Results
02/03/25 02/04/25 02/05/25
14:54 05:07 05:06
RBC 3.95 L 10^6/uL 3.66 L 10^6/uL
(4.20-5.40) (4.20-5.40)
Hgb 11.6 L g/dL
(12.0-16.0)
Hct 34.2 L %
(37.0-47.0)
MCH 31.8 H pg 31.6 H pg 31.7 H pg
(27.0-31.0) (27.0-31.0) (27.0-31.0)
MCHC 32.6 L g/dL
(33.0-37.0)
Absolute Neuts (auto) 7.5 H 10^3/uL
(1.4-6.5)
Absolute Lymphs (auto) 1.0 L 10^3/uL
(1.2-3.4)
Neutrophils % 82.6 H %
(42.2-75.2)
Lymphocytes % 10.7 L %
(20.5-51.1)
Sodium 134 L mmol/L
(135-145)
Chloride 96 L mmol/L
(98-107)
Carbon Dioxide 31 H mmol/L 31 H mmol/L
(22-30) (22-30)
BUN 18 H mg/dl
(7-17)
Glucose 176 H mg/dl 107 H mg/dl 114 H mg/dl
(70-99) (70-99) (70-99)
Calcium 8.2 L mg/dl
(8.4-10.2)
AST 59 H U/L
(14-36)
ALT 57 H U/L
(0-35)
Total Protein 5.8 L D g/dl 5.8 L g/dl
(6.3-8.2) (6.3-8.2)
Albumin 3.3 L g/dl 3.2 L g/dl
(3.5-5.0) (3.5-5.0)
Ur Occult Blood Reflex 2+ A
(Negative)
Leukocyte Esterase Rfl 1+ A
(Negative)
Urine RBC 3-6 A /HPF
(0-2)
Urine Bacteria (Reflex) Few A
(Negative)
Urine Glucose 2+ A
(Negative)
Urine Albumin (Reflex) 1+ A
(Neg - Trace)
02/05/25 05:06
02/05/25 05:06
Vital Signs
Initial and Last Documented VS:
Initial Vital Signs
Temp Pulse BP Pulse Ox
98.0 F 70 173/85 99
02/03/25 13:42 02/03/25 13:42 02/03/25 13:42 02/03/25 13:42
Last Documented Vital Signs
Temp Pulse Resp BP Pulse Ox
97.7 F 59 16 125/52 98
02/05/25 08:13 02/05/25 08:13 02/05/25 08:13 02/05/25 08:13 02/05/25 08:13
*Pulse Oximetry
SaO2: 98
Nasal Cannula flow liters per minute: 2
Oxygen Mode of Delivery: Room air
ED Attending Note
-
Portions of this chart may have been created with voice recognition software.� Occasional wrong word or��sound alike� substitutions may have occurred due to the inherent limitations of voice recognition software.
Discharge Plan
Departure
Patient Disposition: Admit
Date of Disposition: 02/03/25
Time of Disposition: 17:23
Admit to: Med/Surg
Presentation/result/management discussed w/ accepting MD/DO: Michell
Condition: Good
Discharge Problem:
Acute cholecystitis
Interventions
Interventions:
*Risk Screen - Suicide Last Done: 02/03/25 13:46
*General Assessment Last Done: 02/03/25 15:07
*Neglect/Abuse Screening Last Done: 02/03/25 13:46
*ED- Fall Risk Assessment Last Done: 02/03/25 15:07
*ED COVID-19 Vaccine History Last Done: 02/03/25 15:07
*ED Influenza Vaccine History Last Done: 02/03/25 15:07
*Nursing Disposition Last Done: 02/03/25 21:02
ED-Musculoskeletal Assessment Last Done: 02/03/25 15:07
Discharge Date and Time
Discharge Date/Time: 02/03/25 21:05
== END 2025-02-05 10:47 | disposition home or self-care (01) ==
LOC: SDS 20:20
PROVIDERS: Nurse Practitioner Family; Registered Nurse; ATTENDING PHYSICIAN Surgery; EMERGENCY PHYSICIAN Emergency Medicine; FAMILY PHYSICIAN Internal Medicine
DX: K80.12 Calculus of gallbladder with acute and chronic cholecystitis without obstruction (principal)
CPT/HCPCS: 47563; 74300; 76000; 76700; 80048; 80053; 80076; 81003; 81015; 83690; 85025; 85027; 87086; 88304; 96361; 96365; 96375; 96376; 99285; A4300; G0378

== ENCOUNTER → 2025-02-25 07:50 | Outpatient (REF) | payer MEDICARE, SELFPAY ==
[2025-02-25 09:07] LABS: Hematocrit 42.1 % (37.0-47.0); Hemoglobin 14.3 g/dL (12.0-16.0); Mean Corp Hgb Conc. 34.0 g/dL (33.0-37.0); Mean Corpuscular Volume 96.6 fL (81.0-99.0); Platelet Count 251 10^3/uL (130-400); Red Cell Dist. Width 11.7 % (11.5-14.5)
[2025-02-25 10:04] LABS: Nucleated Red Blood Cells % 0 %
[2025-02-25 15:02] LABS: Vitamin D, 25-OH*** 72.6 ng/mL (30-80)
[2025-02-25 15:24] LABS: ALT (SGPT) 32 U/L (0-35); AST (SGOT) 30 U/L (14-36); Albumin 4.6 g/dl (3.5-5.0); Alkaline Phosphatase 77 U/L (38-126); Blood Urea Nitrogen 20 mg/dl (7-17); Calcium 9.9 mg/dl (8.4-10.2); Carbon Dioxide 27 mmol/L (22-30); Chloride 106 mmol/L (98-107); Glucose 98 mg/dl (70-99); HDL Cholesterol 52 mg/dl; LDL Cholesterol, Calculated 111 mg/dl; Potassium 4.5 mmol/L (3.5-5.1); Sodium 140 mmol/L (135-145); Total Protein 8.0 g/dl (6.3-8.2); Very Low Density Lipoprotein 36 mg/dl (0-30); eGFR > 60.00
== END ==
LOC: REG 07:50
PROVIDERS: ATTENDING PHYSICIAN Internal Medicine; REFERRING PHYSICIAN Surgery
DX: E56.9 Vitamin deficiency, unspecified (principal); I10 Essential (primary) hypertension; E78.00 Pure hypercholesterolemia, unspecified; R53.83 Other fatigue; E55.9 Vitamin D deficiency, unspecified
CPT/HCPCS: 36415; 80053; 80061; 82306; 84443; 85025